=== PATIENT | female | born 1960 | race Caucasian/White ===

== ENCOUNTER → 2024-04-17 08:08 | Outpatient (CLI) | payer OTHER ==
[~2024-04-17 08:08] MED LIST: PREVACID30 MG PO; SINTROID
[2024-04-17 09:13] LABS: HEMATOCRIT 37.8 % (36.0-45.00); HEMOGLOBIN 13.1 g/dL (12.0-15.00); MEAN CELL VOLUME 87.5 fL (80.00-100.00); MEAN CORPUSCULAR HEMOGLOBIN 30.3 pg (27.00-32.0); MEAN CORPUSCULAR HGB CONC 34.6 g/dl (32.0-36.0); PLATELET COUNT 227 K/uL (150-450); RED BLOOD COUNT 4.32 M/uL (4.00-6.00); RED CELL DISTRIBUTION WIDTH 12.2 % (11.5-14.5)
[2024-04-17 09:23] LABS: URINE APPEARANCE Cloudy; URINE BILIRRUBIN Negative (NEGATIVE); URINE BLOOD Negative; URINE COLOR Yellow; URINE GLUCOSE Negative (NEGATIVE); URINE KETONE Negative (NEGATIVE); URINE LEUKOCYTE Moderate; URINE NITRATE Negative; URINE PROTEIN Negative (NEGATIVE); URINE UROBILINOGEN 0.2 E.U./dl
[2024-04-17 09:24] LABS: URINE BACTERIA 3061.7 uL (0.0-1933); URINE EPITHELIAL CELLS 81.9 uL (0.0-38.8); URINE RBC 7.1 uL (0.0-20.8); URINE WBC 216.6 uL (0.0-23.2)
[2024-04-17 10:01] LABS: URINE CAST 0.15 uL (0.0-1.40)
[2024-04-17 10:02] LABS: URINE CRYSTALS FEW /HPF
[2024-04-17 10:21] LABS: ALBUMIN 3.7 gm/dL (3.4-5.0); BILIRUBIN TOTAL 0.57 mg/dL (0.3-1.2); CALCIUM 9.2 mg/dL (8.5-10.1); CHOL HDL RATIO 3.5 (0-5.0); CREATININE SERUM 0.84 mg/dL (0.55-1.02); GFR 68.26; GLOBULINA 3.8 G/DL (2.4-3.5); POTASSIUM 4.17 mEq/L (3.5-5.1); T4 TOTAL 6.95 UG/DL (4.8-13.9); TOTAL PROTEIN 7.5 gm/dL (6.4-8.2)
[2024-04-17 10:37] LABS: TSH 0.293 uIU/mL (0.358-3.74)
== END | disposition home or self-care (01) ==
LOC: LAB 08:08
PROVIDERS: ATTEND Internal Medicine Cardiovascular Disease
DX: I10 Essential (primary) hypertension (principal); E11.9 Type 2 diabetes mellitus without complications; E03.9 Hypothyroidism, unspecified; E78.2 Mixed hyperlipidemia

== ENCOUNTER 2024-05-28 15:57 | Outpatient (CLI) | payer OTHER ==
[2024-05-28 16:22] LABS: HEMATOCRIT 38.8 % (36.0-45.00); HEMOGLOBIN 13.2 g/dL (12.0-15.00); MEAN CELL VOLUME 89.8 fL (80.00-100.00); MEAN CORPUSCULAR HEMOGLOBIN 30.6 pg (27.00-32.0); MEAN CORPUSCULAR HGB CONC 34.1 g/dl (32.0-36.0); PLATELET COUNT 204 K/uL (150-450); RED BLOOD COUNT 4.32 M/uL (4.00-6.00); RED CELL DISTRIBUTION WIDTH 12.3 % (11.5-14.5)
[2024-05-28 16:41] LABS: MYCOPLASMA PNEUMONIAE IGM NON REACTIVE (NO REACTIVE)
== END 2024-05-28 16:03 | disposition home or self-care (01) ==
LOC: LAB 15:57
PROVIDERS: ATTEND Internal Medicine Cardiovascular Disease
DX: J11.1 Influenza due to unidentified influenza virus with other respiratory manifestations (principal); A49.3 Mycoplasma infection, unspecified site; Z20.822 Contact with and (suspected) exposure to COVID-19

== ENCOUNTER → 2024-08-01 09:30 | Outpatient (CLI) | payer OTHER ==
[2024-08-01 10:33] LABS: HEMATOCRIT 40.9 % (36.0-45.00); HEMOGLOBIN 13.4 g/dL (12.0-15.00); MEAN CORPUSCULAR HEMOGLOBIN 29.5 pg (27.00-32.0); MEAN CORPUSCULAR HGB CONC 32.8 g/dl (32.0-36.0); RED BLOOD COUNT 4.54 M/uL (4.00-6.00); RED CELL DISTRIBUTION WIDTH 12.6 % (11.5-14.5)
[2024-08-01 11:01] LABS: PLATELET COUNT 217 K/uL (150-450)
[2024-08-01 12:26] LABS: ALBUMIN 3.8 gm/dL (3.4-5.0); BILIRUBIN TOTAL 0.6 mg/dL (0.3-1.2); CALCIUM 9.2 mg/dL (8.5-10.1); CREATININE SERUM 0.89 mg/dL (0.55-1.02); GFR 63.85; GLOBULINA 3.5 G/DL (2.4-3.5); POTASSIUM 4.64 mEq/L (3.5-5.1); TOTAL PROTEIN 7.3 gm/dL (6.4-8.2)
== END | disposition home or self-care (01) ==
LOC: LAB 09:30
PROVIDERS: ATTEND Internal Medicine Pulmonary Disease
DX: J45.30 Mild persistent asthma, uncomplicated (principal); D64.9 Anemia, unspecified; E83.9 Disorder of mineral metabolism, unspecified

== ENCOUNTER 2024-09-24 10:58 | Outpatient (CLI) | payer OTHER ==
[2024-09-24 11:52] LABS: HEMATOCRIT 39.8 % (36.0-45.00); HEMOGLOBIN 13.6 g/dL (12.0-15.00); MEAN CELL VOLUME 88.2 fL (80.00-100.00); MEAN CORPUSCULAR HEMOGLOBIN 30.2 pg (27.00-32.0); MEAN CORPUSCULAR HGB CONC 34.2 g/dl (32.0-36.0); PLATELET COUNT 258 K/uL (150-450); RED BLOOD COUNT 4.52 M/uL (4.00-6.00); RED CELL DISTRIBUTION WIDTH 12.4 % (11.5-14.5)
[2024-09-24 12:11] LABS: URINE APPEARANCE Clear; URINE BILIRRUBIN Negative (NEGATIVE); URINE BLOOD Negative; URINE COLOR Yellow; URINE GLUCOSE Negative (NEGATIVE); URINE KETONE Negative (NEGATIVE); URINE LEUKOCYTE Small; URINE NITRATE Negative; URINE PROTEIN Negative (NEGATIVE); URINE UROBILINOGEN 0.2 E.U./dl
[2024-09-24 12:14] LABS: URINE BACTERIA 614.3 uL (0.0-1933); URINE EPITHELIAL CELLS 40.2 uL (0.0-38.8); URINE RBC 6.1 uL (0.0-20.8); URINE WBC 55.3 uL (0.0-23.2)
[2024-09-24 12:15] LABS: URINE CAST 0.29 uL (0.0-1.40)
[2024-09-24 13:30] LABS: ALBUMIN 3.7 gm/dL (3.4-5.0); BILIRUBIN TOTAL 0.65 mg/dL (0.3-1.2); CALCIUM 9.4 mg/dL (8.5-10.1); CHOL HDL RATIO 3.8 (0-5.0); CREATININE SERUM 0.91 mg/dL (0.55-1.02); GFR 62.04; GLOBULINA 3.8 G/DL (2.4-3.5); POTASSIUM 4.54 mEq/L (3.5-5.1); T4 TOTAL 7.9 UG/DL (4.8-13.9); TOTAL PROTEIN 7.5 gm/dL (6.4-8.2)
[2024-09-24 13:32] LABS: TSH 0.31 uIU/mL (0.358-3.74)
[2024-09-24 14:02] LABS: T3 TOTAL 0.857 ng/ml (0.846-2.02); VITAMIN D3 25 HYDROXY 36.9 ng/ml (30-120)
== END 2024-09-24 10:59 | disposition home or self-care (01) ==
LOC: LAB 10:58
PROVIDERS: ATTEND Internal Medicine Cardiovascular Disease
DX: E03.9 Hypothyroidism, unspecified (principal); I10 Essential (primary) hypertension; E11.9 Type 2 diabetes mellitus without complications; E78.2 Mixed hyperlipidemia; N80.9 Endometriosis, unspecified; E55.9 Vitamin D deficiency, unspecified; M81.0 Age-related osteoporosis without current pathological fracture

== ENCOUNTER 2024-10-29 12:50 | Outpatient (CLI) | payer OTHER | END 2024-10-29 12:57 | disposition home or self-care (01) | LOC: MAMO-SONO 12:50 | PROVIDERS: ATTEND Obstetrics & Gynecology | DX: N64.4 Mastodynia (principal) ==

== ENCOUNTER 2025-03-25 11:07 | Outpatient (CLI) | payer OTHER ==
[2025-03-25 12:25] LABS: URINE APPEARANCE Clear; URINE BILIRRUBIN Negative (NEGATIVE); URINE BLOOD Negative; URINE COLOR Yellow; URINE GLUCOSE Negative (NEGATIVE); URINE KETONE Negative (NEGATIVE); URINE LEUKOCYTE Moderate; URINE NITRATE Negative; URINE PROTEIN Negative (NEGATIVE); URINE UROBILINOGEN 0.2 E.U./dl
[2025-03-25 12:29] LABS: URINE BACTERIA 824.2 uL (0.0-1933); URINE EPITHELIAL CELLS 51.9 uL (0.0-38.8); URINE RBC 3.9 uL (0.0-20.8); URINE WBC 73.9 uL (0.0-23.2)
[2025-03-25 12:30] LABS: URINE CAST 0.43 uL (0.0-1.40)
[2025-03-25 12:33] LABS: BASO % 0.5 % (0.1-1.2); EOS # 0.06 (0.04-0.54); EOS % 1.0 % (0.7-7.0); LYMPH # 2.14 (1.18-3.74); LYMPH % 34.7 % (19.3-53.1); MEAN PLATELET VOLUME 9.80 fl (9.4-12.4); MONO # 0.30 (0.24-0.82); MONO % 4.9 % (4.7-12.5); NEUT # 3.63 (1.56-6.13); NEUT % 58.7 % (34.0-71.1); RED CELL DISTRIBUTION WIDTH 11.6 % (11.6-14.4)
[2025-03-25 13:39] LABS: ALT/SGPT 73.0 U/L (12-78); AST/SGOT 27.0 U/L (15-37); BILIRUBIN TOTAL 0.67 mg/dL (0.3-1.2); BUN CREA RATIO 19.0 (7.0-25.0); CHOL HDL RATIO 4.4 (0-5.0); CREATININE SERUM 0.86 mg/dL (0.55-1.02); GFR 66.22; GLOBULINA 3.4 G/DL (2.4-3.5); GLUCOSE FASTING 88.0 mg/dL (65-100); HDL 45.0 mg/dl (40-60); LDL 117.0 mg/dl (0-130); OSMOLALITY SERUM 289.0 MOSM/KG (275-295); T4 TOTAL 5.51 UG/DL (4.8-13.9); VLDL 34.0 (0-39)
[2025-03-25 13:41] LABS: TSH 0.327 uIU/mL (0.358-3.74)
== END 2025-03-25 11:12 | disposition home or self-care (01) ==
LOC: LAB 11:07
PROVIDERS: ATTEND Internal Medicine Cardiovascular Disease
DX: I10 Essential (primary) hypertension (principal); E11.9 Type 2 diabetes mellitus without complications; E03.9 Hypothyroidism, unspecified; E78.2 Mixed hyperlipidemia

== ENCOUNTER 2025-03-25 12:02 | Outpatient (CLI) | payer OTHER | END 2025-03-25 12:09 | disposition home or self-care (01) | LOC: RAD 12:02 | DX: G57.12 Meralgia paresthetica, left lower limb (principal); M54.51 Vertebrogenic low back pain ==

== ENCOUNTER 2025-05-06 12:47 | Outpatient (CLI) | payer OTHER | END 2025-05-06 12:54 | disposition home or self-care (01) | LOC: RAD 12:47 | PROVIDERS: ATTEND Internal Medicine Pulmonary Disease | DX: J45.30 Mild persistent asthma, uncomplicated (principal) ==